=== PATIENT | female | born 1945 | race Caucasian/White ===

== ENCOUNTER 2021-04-07 21:01 | Emergency (ER) | payer MEDICARE ==
[~2021-04-07] VITALS: Ht 157.5 cm; Wt 73.0 kg
[~2021-04-07 21:01] MED LIST: ASPI-612 PO; CALC-642 PO; FENO135C PO; LISI10TA27 PO; METF-436 PO; MULT-1085 PO; OMEG500C PO; SERT50TA PO; SULF500T59 PO; VITA150T PO
[2021-04-07 21:57] VITALS: BP 153/59
== END 2021-04-07 22:03 | disposition home or self-care (01) ==
LOC: ER 21:02
DX: S00.03XA Contusion of scalp, initial encounter (principal); M25.522 Pain in left elbow; E11.9 Type 2 diabetes mellitus without complications; Z79.82 Long term (current) use of aspirin; Z79.899 Other long term (current) drug therapy; W01.198A Fall on same level from slipping, tripping and stumbling with subsequent striking against other object, initial encounter; Z91.81 History of falling; Y93.89 Activity, other specified; Y92.89 Other specified places as the place of occurrence of the external cause; Y99.8 Other external cause status
CPT/HCPCS: 70450; 72125; 73080; 99285